=== PATIENT | male | born 1970 | race African-American/Black ===

== ENCOUNTER 2017-09-06 23:15 | Emergency (ER) | payer OTHER ==
[~2017-09-06] VITALS: Ht 190.5 cm; Wt 94.6 kg
[2017-09-07] MEDS ORDERED: TRAMADOL HCL50 MG PO (00:49)
[2017-09-07] MEDS ORDERED: SKELAXIN800 MG PO (00:49)
[2017-09-07] MEDS ORDERED: MOTRIN600 MG PO (00:49)
[2017-09-07 01:00] VITALS: BP 121/81
== END 2017-09-07 01:00 | disposition home or self-care (01) ==
LOC: EME 23:15
DX: S39.012A Strain of muscle, fascia and tendon of lower back, initial encounter (principal); V43.52XA Car driver injured in collision with other type car in traffic accident, initial encounter; Y92.411 Interstate highway as the place of occurrence of the external cause
CPT/HCPCS: 99281; 99283; J1885